=== PATIENT | male | born 1990 | race Caucasian/White ===

== ENCOUNTER 2023-09-22 11:20 | Emergency (ER) | payer OTHER ==
[~2023-09-22] VITALS: Ht 175.3 cm; Wt 90.7 kg
[2023-09-22 11:29] VITALS: BP 134/108
[2023-09-22] MEDS ORDERED: AMOCLA875 PO ×2 (11:32→11:47)
[2023-09-22] MEDS ORDERED: Ultram50 MG PO (11:47)
[2023-09-22] MEDS ORDERED: IBU800 M1 PO (11:47)
== END 2023-09-22 11:54 | disposition home or self-care (01) ==
LOC: ER 11:20
DX: K08.89 Other specified disorders of teeth and supporting structures (principal); Z98.818 Other dental procedure status
CPT/HCPCS: 99282